=== PATIENT | female | born 1985 | race Hispanic/Latino ===

== ENCOUNTER 2023-07-05 14:34 | Emergency (ER) | payer SELFPAY ==
[2023-07-05 16:48] LABS: Pregnancy Test - Urine (BHCG) Negative (Negative); Pregu Control Background? CLEAR/WHITE (CLR/WHITE); Pregu Control Bar Appear? YES (CONTROL BAR); Specific Gravity 1.019 (1.002-1.036)
== END 2023-07-05 17:15 | disposition home or self-care (01) ==
LOC: ERS 14:34
DX: S61.511D Laceration without foreign body of right wrist, subsequent encounter (principal)
CPT/HCPCS: 81025